=== PATIENT | female | born 1995 | race American Indian/Alaskan Native ===

== ENCOUNTER 2018-09-10 20:39 | Emergency (ER) | payer MEDICAID, OTHER ==
[2018-09-10 20:47] VITALS: BP 154/89
--- NOTE | 2018-09-10 21:13 | Emergency Department Report ---
Blank Doc - Documentation Documentation: 23 y/o female with mid chest pain that started this morning. Non productive c ough.
--- NOTE | 2018-09-11 01:53 | Emergency Department Report ---
ED General Adult HPI - General Chief complaint: Chest Pain Stated complaint: CHEST PAIN, SOB Time Seen by Provider: 09/10/18 23:23 Source: patient Mode of arrival: Ambulatory Limitations: No Limitations - History of Present Illness Initial comments: 23-year-old female who is 20 weeks 5 days emergency department complaining of a one day history of non-productive cough and atypical chest discomfort associated with some occasional lightheadedness. States that she is been having symptoms having some issues with feeling lightheaded and coughing spells lasting for one hour. No fever associated no nausea or vomiting. She reports no pelvic pain or vaginal discharge. No abdominal pain, no flank pain. No no neck pain. She has not tried any [id number] medications due to her seeks further evaluation and treatment of her condition. Radiation: non-radiation Severity scale (0 -10): 9 Consistency: constant Improves with: none Worsens with: none - Related Data Previous Rx's Medication Instructions Recorded Last Taken Type HYDROcodone/APAP 5-325 [[place] 1 each PO Q6HR PRN #20 tablet 01/15/14 Unknown Rx 5/325] Acetaminophen/Codeine 1 tab PO Q6H PRN #15 tab 04/12/14 Unknown Rx [Acetaminophen-Codeine #3 TAB] Allergies Allergy/AdvReac Type Severity Reaction Status Date / Time No Known Allergies Allergy Verified 09/10/18 20:41 ED Review of Systems ROS: Stated complaint: CHEST PAIN, SOB Other details as noted in HPI Constitutional: denies: chills, fever Eyes: denies: eye pain, eye discharge, vision change ENT: denies: ear pain, throat pain Respiratory: denies: cough, shortness of breath, wheezing Cardiovascular: chest pain. denies: palpitations Endocrine: no symptoms reported Gastrointestinal: denies: abdominal pain, nausea, diarrhea Genitourinary: denies: urgency, dysuria, discharge Musculoskeletal: denies: back pain, joint swelling, arthralgia Skin: denies: rash, lesions Neurological: denies: headache, weakness, paresthesias Psychiatric: denies: anxiety, depression Hematological/Lymphatic: denies: easy bleeding, easy bruising ED Past Medical Hx - Past Medical History Previous Medical History?: Yes Additional medical history: costrocondritis - Surgical History Past Surgical History?: Yes Additional Surgical History: - Social History Smoking Status: Never Smoker Substance Use Type: None - Medications Home Medications: Home Medications Medication Instructions Recorded Confirmed Last Taken Type HYDROcodone/APAP 5-325 [[place] 1 each PO Q6HR PRN #20 tablet 01/15/14 Unknown Rx 5/325] Acetaminophen/Codeine 1 tab PO Q6H PRN #15 tab 04/12/14 Unknown Rx [Acetaminophen-Codeine #3 TAB] ED Physical Exam - General Limitations: No Limitations General appearance: alert, in no apparent distress - Head Head exam: Present: atraumatic, normocephalic - Eye Eye exam: Present: normal appearance, PERRL, EOMI Pupils: Present: normal accommodation - ENT ENT exam: Present: normal exam, mucous membranes moist - Neck Neck exam: Present: normal inspection, full ROM - Respiratory Respiratory exam: Present: normal lung sounds bilaterally. Absent: respiratory distress, wheezes, rales, rhonchi, chest wall tenderness, accessory muscle use, decreased breath sounds - Cardiovascular Cardiovascular Exam: Present: regular rate, normal rhythm. Absent: systolic murmur, diastolic murmur, rubs, gallop - GI/Abdominal GI/Abdominal exam: Present: soft, normal bowel sounds - Extremities Exam Extremities exam: Present: normal inspection - Back Exam Back exam: Present: normal inspection - Neurological Exam Neurological exam: Present: alert, oriented X3 - Psychiatric Psychiatric exam: Present: normal affect, normal mood - Skin Skin exam: Present: warm, dry, intact, normal color. Absent: rash ED Course Vital Signs 09/10/18 09/10/18 20:46 20:50 Temperature 97.7 F 97.7 F Pulse Rate 116 H 116 H Respiratory 16 16 Rate Blood Pressure 154/89 Blood Pressure 154/89 [Right] O2 Sat by Pulse 100 100 Oximetry Critical care attestation.: If time is entered above; I have spent that time in minutes in the direct care of this critically ill patient, excluding procedure time. ED Disposition Clinical Impression: Chest pain, Cough Disposition: - TO HOME OR SELFCARE Is pt being admited?: No Does the pt Need Aspirin: No Condition: Stable Instructions: Chest Pain (ED) Referrals: BETHANY CERVANTES MD [Primary Care Provider] - 3-5 Days
[2018-09-11 02:15] LABS: Hematocrit 36.6 % (30.3-42.9); Hemoglobin 12.4 gm/dl (10.1-14.3); Mean Corpuscular HGB Conc 34 % (30-34); Mean Corpuscular Volume 96 fl (79-97); Red Blood Count 3.81 M/mm3 (3.65-5.03)
[2018-09-11 02:16] LABS: Basophils % (Auto) 0.5 % (0.0-1.8); Eosinophils % (Auto) 2.4 % (0.0-4.3); Lymphocytes % (Auto) 18.6 % (13.4-35.0); Monocytes % (Auto) 7.5 % (0.0-7.3); Platelet Count 198 K/mm3 (140-440); Red Cell Distribution Width 13.3 % (13.2-15.2)
[2018-09-11 02:17] LABS: Eosinophils # (Auto) 0.2 K/mm3 (0.0-0.4); Lymphocytes # (Auto) 1.7 K/mm3 (1.2-5.4); Monocytes # (Auto) 0.7 K/mm3 (0.0-0.8)
[2018-09-11 02:28] LABS: BUN/Creatinine Ratio 15; Blood Urea Nitrogen 6 mg/dL (7-17); Calcium 8.7 mg/dL (8.4-10.2); Hemolysis Index 10
== END 2018-09-11 03:40 | disposition home or self-care (01) ==
LOC: ED 20:39
DX: O26.892 Other specified pregnancy related conditions, second trimester (principal); R05 Cough; R07.9 Chest pain, unspecified; R42 Dizziness and giddiness; Z3A.20 20 weeks gestation of pregnancy
CPT/HCPCS: 36415; 80048; 85025; 93005; 93010; 99283

== ENCOUNTER 2018-11-01 09:34 | Outpatient (CLI) | payer MEDICAID ==
[~2018-11-01 09:34] MED LIST: LACTATED RINGERS 1,000 ML IV ONE
[2018-11-01 10:34] LABS: Bilirubin,Urine NEG (Negative); Blood,Urine NEG (Negative); Color,Urine Yellow (Yellow); Mucus,Urine 2+ /HPF; Urobilinogen,Urine < 2.0 mg/dL (<2.0)
[2018-11-01] MEDS ORDERED: LACTATED RINGERS 1,000 ML ONE (10:45)
[2018-11-01 12:33] VITALS: BP 127/70
--- NOTE | 2018-11-02 07:09 | Ultrasound Report ---
PROCEDURE: US OB LIMITED TECHNIQUE: Limited transabdominal imaging was obtained the pelvis for evaluation of the EVIE and plac enta. HISTORY: ABDOMINAL PAIN, EVIE, LOOK AT PLACENTA COMPARISONS: None FINDINGS: The placenta is posterior in position and is grade 2. There is no evidence of previa or abruption. Th e EVIE is 11.9 cm which is normal. There is a single fetus in breech presentation. The heart rat e is 141 BPM. IMPRESSION: Grade 2 posterior placenta. No evidence of previa or abruption. Normal EVIE of 11.9 cm. Breech presentation. The heart rate is 141 BPM.. This document is electronically signed by Micah Dunn MD., November 02 2018 07:07:30 AM ET
== END 2018-11-01 16:29 | disposition home or self-care (01) ==
LOC: TRG 09:34
PROVIDERS: ATTEND Obstetrics & Gynecology
DX: O26.893 Other specified pregnancy related conditions, third trimester (principal); R10.9 Unspecified abdominal pain; O32.1XX0 Maternal care for breech presentation, not applicable or unspecified; O47.03 False labor before 37 completed weeks of gestation, third trimester; Z3A.28 28 weeks gestation of pregnancy
CPT/HCPCS: 59025; 76815; 81001; J7120

== ENCOUNTER 2020-02-28 16:50 | Emergency (ER) | payer OTHER ==
[2020-02-28] MEDS ORDERED: METOCLOPRAMIDE 10 MG TAB PO ONE (21:14)
[2020-02-28] MEDS ORDERED: diphenhydrAMINE 25 MG CAP PO ONE (21:14)
[2020-02-28] MEDS ORDERED: predniSONE 20 MG TAB PO ONE (21:14)
--- NOTE | 2020-02-28 21:42 | Emergency Department Report ---
- General Chief complaint: Skin Rash Stated complaint: BITES ON BOTH ARMS Time Seen by Provider: 02/28/20 20:58 Source: patient Mode of arrival: Ambulatory Limitations: No Limitations - History of Present Illness Initial comments: Patient is a 24-year-old female who presents status post insect bite to right forearm 2 days ago. No erythema itching to bilateral forearms and upper arms. Patient was seen by PCP today and advised that she had an allergic reaction. Patient has not taken po antihistamine prior to arrival. There is no fever or chills no n/v no sob, no wheezing or stridor. symptoms started 2 days ago. MD complaint: insect bite/sting - Related Data Previous Rx's Medication Instructions Recorded Last Taken Type Ibuprofen [Motrin 800 MG tab] 800 mg PO Q8HR PRN #30 tablet 01/01/20 Unknown Rx oxyCODONE /ACETAMINOPHEN [Percocet 1 tab PO Q4HR PRN #30 tab 01/01/20 Unknown Rx 5/325] Famotidine [Pepcid] 20 mg PO BID PRN #14 tablet 02/28/20 Unknown Rx diphenhydrAMINE [Benadryl CAP] 25 mg PO Q8HR PRN #21 capsule 02/28/20 Unknown Rx predniSONE [Deltasone] 20 mg PO QDAY 5 Days #5 tab 02/28/20 Unknown Rx Allergies Allergy/AdvReac Type Severity Reaction Status Date / Time No Known Allergies Allergy Verified 09/10/18 20:41 Abscess Boil HPI - HPI Chief Complaint: Skin Rash Stated Complaint: BITES ON BOTH ARMS Time Seen by Provider: 02/28/20 20:58 Home Medications: Previous Rx's Medication Instructions Recorded Last Taken Type Ibuprofen [Motrin 800 MG tab] 800 mg PO Q8HR PRN #30 tablet 01/01/20 Unknown Rx oxyCODONE /ACETAMINOPHEN [Percocet 1 tab PO Q4HR PRN #30 tab 01/01/20 Unknown Rx 5/325] Famotidine [Pepcid] 20 mg PO BID PRN #14 tablet 02/28/20 Unknown Rx diphenhydrAMINE [Benadryl CAP] 25 mg PO Q8HR PRN #21 capsule 02/28/20 Unknown Rx predniSONE [Deltasone] 20 mg PO QDAY 5 Days #5 tab 02/28/20 Unknown Rx Allergies/Adverse Reactions: Allergies Allergy/AdvReac Type Severity Reaction Status Date / Time No Known Allergies Allergy Verified 09/10/18 20:41 ED Review of Systems ROS: Stated complaint: BITES ON BOTH ARMS Other details as noted in HPI Constitutional: denies: chills, fever Eyes: denies: eye pain, eye discharge, vision change ENT: denies: ear pain, throat pain Respiratory: denies: cough, shortness of breath, wheezing Cardiovascular: denies: chest pain, palpitations Endocrine: no symptoms reported Gastrointestinal: denies: abdominal pain, nausea, diarrhea Genitourinary: denies: urgency, dysuria, discharge Musculoskeletal: denies: back pain, joint swelling, arthralgia Skin: pruritus (bilat upper extrem) Neurological: denies: headache, weakness, paresthesias Psychiatric: denies: anxiety, depression Hematological/Lymphatic: denies: easy bleeding, easy bruising ED Past Medical Hx - Past Medical History Hx Hypertension: No Hx Diabetes: No Hx Deep Vein Thrombosis: No Hx Renal Disease: No Hx Sickle Cell Disease: No Hx Seizures: No Hx Asthma: No Hx HIV: No Additional medical history: costrocondritis - Surgical History Additional Surgical History: - Social History Smoking Status: Never Smoker - Medications Home Medications: Home Medications Medication Instructions Recorded Confirmed Last Taken Type Ibuprofen [Motrin 800 MG tab] 800 mg PO Q8HR PRN #30 tablet 01/01/20 Unknown Rx oxyCODONE /ACETAMINOPHEN [Percocet 1 tab PO Q4HR PRN #30 tab 01/01/20 Unknown Rx 5/325] Famotidine [Pepcid] 20 mg PO BID PRN #14 tablet 02/28/20 Unknown Rx diphenhydrAMINE [Benadryl CAP] 25 mg PO Q8HR PRN #21 capsule 02/28/20 Unknown Rx predniSONE [Deltasone] 20 mg PO QDAY 5 Days #5 tab 02/28/20 Unknown Rx ED Physical Exam - General Limitations: No Limitations General appearance: alert, in no apparent distress - Head Head exam: Present: atraumatic - Eye Eye exam: Present: normal appearance - ENT ENT exam: Present: mucous membranes moist - Neck Neck exam: Present: normal inspection - Respiratory Respiratory exam: Present: normal lung sounds bilaterally. Absent: respiratory distress, wheezes, stridor, chest wall tenderness - Cardiovascular Cardiovascular Exam: Present: regular rate, normal rhythm, normal heart sounds. Absent: systolic murmur, diastolic murmur, rubs, gallop - GI/Abdominal GI/Abdominal exam: Present: soft, normal bowel sounds - Rectal Rectal exam: Present: deferred - Extremities Exam Extremities exam: Present: full ROM, normal capillary refill. Absent: tenderness - Back Exam Back exam: Present: normal inspection, full ROM. Absent: tenderness - Neurological Exam Neurological exam: Present: alert, oriented X3, normal gait - Psychiatric Psychiatric exam: Present: normal affect, normal mood - Skin Skin exam: Present: warm, dry, intact, erythema (bialt forearm erythema rash raised smooth no drainage no fever ), urticaria. Absent: rash ED Course Vital Signs 02/28/20 17:32 Temperature 98.2 F Pulse Rate 81 Respiratory 18 Rate Blood Pressure 121/87 O2 Sat by Pulse 99 Oximetry ED Medical Decision Making - Medical Decision Making This is and allergic reaction to insect bite/sting, symptoms are improved with medications given in ed, vital signs are normal , resp even nonlabored no wheezing no stridor, no sob, no cp. plan dc to home with rx , prednisone, benadr yl, pepcid pt will follow up with pcp in 2-3 days. pt dc'd to home in stable condition at this time. Critical care attestation.: If time is entered above; I have spent that time in minutes in the direct care of this critically ill patient, excluding procedure time. ED Disposition Clinical Impression: Insect sting allergy, current reaction Qualifiers: Encounter type: initial encounter Injury intent: accidental or unintentional Qualified Code(s): T63.481A - Toxic effect of venom of other arthropod, accidental (unintentional), initial encounter Disposition: DC-01 TO HOME OR SELFCARE Is pt being admited?: No Does the pt Need Aspirin: No Condition: Stable Instructions: Allergies (ED), Insect Bite or Sting (ED) Prescriptions: diphenhydrAMINE [Benadryl CAP] 25 mg PO Q8HR PRN #21 capsule PRN Reason: itching allergies predniSONE [Deltasone] 20 mg PO QDAY 5 Days #5 tab Famotidine [Pepcid] 20 mg PO BID PRN #14 tablet PRN Reason: allergies Referrals: LUIS ALBERTO REEVES MD [Primary Care Provider] - 3-5 Days Forms: Work/School Release Form(ED) Time of Disposition: 21:49
[2020-02-28 22:23] VITALS: BP 123/71
== END 2020-02-28 21:55 | disposition home or self-care (01) ==
LOC: ED 16:50
DX: T63.481A Toxic effect of venom of other arthropod, accidental (unintentional), initial encounter (principal); Z98.890 Other specified postprocedural states; Z79.1 Long term (current) use of non-steroidal anti-inflammatories (NSAID); Z79.899 Other long term (current) drug therapy; Y92.89 Other specified places as the place of occurrence of the external cause
CPT/HCPCS: 99282; J7512

== ENCOUNTER 2020-03-23 05:56 | Emergency (ER) | payer OTHER ==
[2020-03-23] MEDS ORDERED: dexAMETHasone 4 MG/ML VIAL IM ONE (06:33)
[2020-03-23] MEDS ORDERED: diphenhydrAMINE 50 MG/ML VIAL IM ONE (06:33)
[2020-03-23] MEDS ORDERED: FAMOTIDINE 20 MG TAB PO ONE (06:34)
--- NOTE | 2020-03-23 06:38 | Emergency Department Report ---
ED General Adult HPI - General Chief complaint: Allergic Reaction Stated complaint: SWOLLEN LIP Time Seen by Provider: 03/23/20 06:21 Source: patient Mode of arrival: Ambulatory Limitations: No Limitations - History of Present Illness Initial comments: 24-year-old female with essentially idiopathic swelling of the lower lip overnight. She reports no precipitant. She has had no difficulty in breathing or swallowing. She has not had a reaction like this before. She has not been on any blood pressure medicine. She denies any apparent exposure to chemical or insects. She does not report a prior personal history nor familial. -: Gradual, hour(s) Location: mouth (Lower lip only) Quality: other (Uncomfortable) Consistency: constant Improves with: none Worsens with: none Associated Symptoms: denies other symptoms Treatments Prior to Arrival: none - Related Data Previous Rx's Medication Instructions Recorded Last Taken Type Ibuprofen [Motrin 800 MG tab] 800 mg PO Q8HR PRN #30 tablet 01/01/20 Unknown Rx oxyCODONE /ACETAMINOPHEN [Percocet 1 tab PO Q4HR PRN #30 tab 01/01/20 Unknown Rx 5/325] Famotidine [Pepcid] 20 mg PO BID PRN #14 tablet 02/28/20 Unknown Rx diphenhydrAMINE [Benadryl CAP] 25 mg PO Q8HR PRN #21 capsule 02/28/20 Unknown Rx predniSONE [Deltasone] 20 mg PO QDAY 5 Days #5 tab 02/28/20 Unknown Rx Famotidine [Pepcid] 20 mg PO BID #20 tablet 03/23/20 Unknown Rx hydrOXYzine HCL [Atarax] 25 mg PO Q6HR PRN #30 tablet 03/23/20 Unknown Rx predniSONE [Deltasone] 40 mg PO QDAY #10 tab 03/23/20 Unknown Rx Allergies Allergy/AdvReac Type Severity Reaction Status Date / Time No Known Allergies Allergy Verified 09/10/18 20:41 ED Review of Systems ROS: Stated complaint: SWOLLEN LIP Other details as noted in HPI Constitutional: denies: chills, fever Eyes: denies: eye pain, vision change ENT: denies: ear pain, throat pain Respiratory: denies: cough, shortness of breath Cardiovascular: denies: chest pain, palpitations Endocrine: no symptoms reported Gastrointestinal: denies: abdominal pain, nausea, vomiting Genitourinary: denies: urgency, dysuria Musculoskeletal: denies: joint swelling, arthralgia Skin: as per HPI. denies: rash, lesions Neurological: denies: headache, weakness, numbness Psychiatric: denies: anxiety, depression Hematological/Lymphatic: denies: easy bleeding, easy bruising ED Past Medical Hx - Past Medical History Previous Medical History?: Yes Hx Hypertension: No Hx Diabetes: No Hx Deep Vein Thrombosis: No Hx Renal Disease: No Hx Sickle Cell Disease: No Hx Seizures: No Hx Asthma: No Hx HIV: No Additional medical history: costrocondritis - Surgical History Past Surgical History?: Yes Additional Surgical History: - Social History Smoking Status: Never Smoker Substance Use Type: None - Medications Home Medications: Home Medications Medication Instructions Recorded Confirmed Last Taken Type Ibuprofen [Motrin 800 MG tab] 800 mg PO Q8HR PRN #30 tablet 01/01/20 Unknown Rx oxyCODONE /ACETAMINOPHEN [Percocet 1 tab PO Q4HR PRN #30 tab 01/01/20 Unknown Rx 5/325] Famotidine [Pepcid] 20 mg PO BID PRN #14 tablet 02/28/20 Unknown Rx diphenhydrAMINE [Benadryl CAP] 25 mg PO Q8HR PRN #21 capsule 02/28/20 Unknown Rx predniSONE [Deltasone] 20 mg PO QDAY 5 Days #5 tab 02/28/20 Unknown Rx Famotidine [Pepcid] 20 mg PO BID #20 tablet 03/23/20 Unknown Rx hydrOXYzine HCL [Atarax] 25 mg PO Q6HR PRN #30 tablet 03/23/20 Unknown Rx predniSONE [Deltasone] 40 mg PO QDAY #10 tab 03/23/20 Unknown Rx ED Physical Exam - General Limitations: No Limitations General appearance: alert, in no apparent distress - Head Head exam: Present: atraumatic, normocephalic - Eye Eye exam: Present: normal appearance. Absent: scleral icterus - ENT ENT exam: Present: mucous membranes moist, other (2+ angioedema of the lower lip. Upper lip is not involved. Throat is not involved. Airway is patent.) - Neck Neck exam: Present: normal inspection, other (No submandibular angioedema/swelling. No neck swelling.) - Respiratory Respiratory exam: Present: normal lung sounds bilaterally. Absent: respiratory distress - Cardiovascular Cardiovascular Exam: Present: regular rate, normal rhythm. Absent: systolic murmur, diastolic murmur, rubs, gallop - GI/Abdominal GI/Abdominal exam: Present: soft, normal bowel sounds. Absent: distended, tenderness - Extremities Exam Extremities exam: Present: normal inspection. Absent: pedal edema - Back Exam Back exam: Present: normal inspection - Neurological Exam Neurological exam: Present: alert, oriented X3, CN II-XII intact. Absent: motor sensory deficit - Psychiatric Psychiatric exam: Present: normal affect, normal mood - Skin Skin exam: Present: warm, dry, intact, normal color. Absent: rash ED Course Vital Signs 03/23/20 03/23/20 03/23/20 06:00 06:44 07:26 Temperature 98.1 F 98.0 F Pulse Rate 91 H 80 Respiratory 16 18 Rate Blood Pressure 126/81 Blood Pressure 119/78 [Left] O2 Sat by Pulse 99 100 100 Oximetry 03/23/20 07:29 Temperature Pulse Rate 86 Respiratory 16 Rate Blood Pressure Blood Pressure 118/79 [Left] O2 Sat by Pulse 100 Oximetry - Reevaluation(s) Reevaluation #1: Apparently the patient has been here in February for some sort of allergic reaction as well. She is encouraged to follow-up with an etl informatica architect. She was observed. She developed no neck or airway edema. Lip edema is perhaps slightly improved. She is resting comfortably in no distress. She is appropriate for outpatient disposition and agreeable. 03/23/20 07:49 Critical care attestation.: If time is entered above; I have spent that time in minutes in the direct care of this critically ill patient, excluding procedure time. ED Disposition Clinical Impression: Angioedema of lips Qualifiers: Encounter type: initial encounter Qualified Code(s): T78.3XXA - Angioneurotic edema, initial encounter Disposition: - TO HOME OR SELFCARE Is pt being admited?: No Does the pt Need Aspirin: No Condition: Stable Instructions: Angioedema, [id number], Angioedema Additional Instructions: I would recommend evaluation by an etl informatica architect. Follow-up with family physician for specific referral. Options for primary care are listed. Return to the emergency department any increased swelling difficulty swallowing or breathing problem. Prescriptions: hydrOXYzine HCL [Atarax] 25 mg PO Q6HR PRN #30 tablet PRN Reason: Itching predniSONE [Deltasone] 40 mg PO QDAY #10 tab Famotidine [Pepcid] 20 mg PO BID #20 tablet Referrals: PRASAD BARRETO MD [Staff Physician] - 3-5 Days [facility] [Provider Group] - 3-5 Days Time of Disposition: 07:51
[2020-03-23 07:29] VITALS: BP 118/79
== END 2020-03-23 08:30 | disposition home or self-care (01) ==
LOC: ED 05:56
DX: T78.3XXA Angioneurotic edema, initial encounter (principal); Z98.890 Other specified postprocedural states; Z79.899 Other long term (current) drug therapy; X58.XXXA Exposure to other specified factors, initial encounter
CPT/HCPCS: 96372; 99282; J1100; J1200

== ENCOUNTER 2021-07-05 18:51 | Emergency (ER) | payer OTHER ==
[2021-07-05 19:27] VITALS: BP 124/80
--- NOTE | 2021-07-06 01:36 | XRay Report ---
XR chest routine 2V INDICATION / CLINICAL INFORMATION: chest pain. COMPARISON: None available. FINDINGS: SUPPORT DEVICES: None. HEART /PULMONARY VASCULATURE: No significant abnormality. LUNGS / PLEURA: No significant pulmonary or pleural abnormality. No pneumothorax. ADDITIONAL FINDINGS: No significant additional findings. IMPRESSION: 1. No acute findings. Signer Name: Jovanny Armas MD Signed: 07/06/2021 1:31 AM Workstation Name: [id number]
--- NOTE | 2021-07-06 02:17 | Emergency Department Report ---
ED General Adult HPI - General Chief complaint: Chest Pain Stated complaint: HEADACHE/CHEST TIGHTNESS Time Seen by Provider: 07/06/21 00:16 Source: patient Mode of arrival: Ambulatory Limitations: No Limitations - History of Present Illness Initial comments: 26-year-old male female with medical complaining of pain to the right chest that started around 4:00 today of an unknown etiology pain is worse with palpation and deep breaths she reports no hemoptysis no hematemesis hematochezia, no fever, chills, sweats. No nausea, no vomiting. She reports no diarrhea or constipation. Radiation: non-radiation Consistency: constant Improves with: none Worsens with: none Associated Symptoms: chest pain. denies: headaches, loss of appetite, malaise, nausea/vomiting, shortness of breath, syncope, weakness - Related Data Previous Rx's Medication Instructions Recorded Last Taken Type Ibuprofen [Motrin 800 MG tab] 800 mg PO Q8HR PRN #30 tablet 01/01/20 Unknown Rx oxyCODONE /ACETAMINOPHEN [Percocet 1 tab PO Q4HR PRN #30 tab 01/01/20 Unknown Rx 5/325] Famotidine [Pepcid] 20 mg PO BID PRN #14 tablet 02/28/20 Unknown Rx diphenhydrAMINE [Benadryl CAP] 25 mg PO Q8HR PRN #21 capsule 02/28/20 Unknown Rx predniSONE [Deltasone] 20 mg PO QDAY 5 Days #5 tab 02/28/20 Unknown Rx Famotidine [Pepcid] 20 mg PO BID #20 tablet 03/23/20 Unknown Rx hydrOXYzine HCL [Atarax] 25 mg PO Q6HR PRN #30 tablet 03/23/20 Unknown Rx predniSONE [Deltasone] 40 mg PO QDAY #10 tab 03/23/20 Unknown Rx Ketorolac [Toradol] 10 mg PO Q6H PRN #20 07/06/21 Unknown Rx Allergies Allergy/AdvReac Type Severity Reaction Status Date / Time No Known Allergies Allergy Verified 09/10/18 20:41 ED Review of Systems ROS: Stated complaint: HEADACHE/CHEST TIGHTNESS Other details as noted in HPI Comment: All other systems reviewed and negative ED Past Medical Hx - Past Medical History Previous Medical History?: Yes Hx Hypertension: No Hx Diabetes: No Hx Deep Vein Thrombosis: No Hx Renal Disease: No Hx Sickle Cell Disease: No Hx Seizures: No Hx Asthma: No Hx HIV: No Additional medical history: costrocondritis - Surgical History Past Surgical History?: Yes Additional Surgical History: X 4 - Social History Smoking Status: Never Smoker Substance Use Type: None - Medications Home Medications: Home Medications Medication Instructions Recorded Confirmed Last Taken Type Ibuprofen [Motrin 800 MG tab] 800 mg PO Q8HR PRN #30 tablet 01/01/20 Unknown Rx oxyCODONE /ACETAMINOPHEN [Percocet 1 tab PO Q4HR PRN #30 tab 01/01/20 Unknown Rx 5/325] Famotidine [Pepcid] 20 mg PO BID PRN #14 tablet 02/28/20 Unknown Rx diphenhydrAMINE [Benadryl CAP] 25 mg PO Q8HR PRN #21 capsule 02/28/20 Unknown Rx predniSONE [Deltasone] 20 mg PO QDAY 5 Days #5 tab 02/28/20 Unknown Rx Famotidine [Pepcid] 20 mg PO BID #20 tablet 03/23/20 Unknown Rx hydrOXYzine HCL [Atarax] 25 mg PO Q6HR PRN #30 tablet 03/23/20 Unknown Rx predniSONE [Deltasone] 40 mg PO QDAY #10 tab 03/23/20 Unknown Rx Ketorolac [Toradol] 10 mg PO Q6H PRN #20 07/06/21 Unknown Rx ED Physical Exam - General Limitations: No Limitations General appearance: alert, in no apparent distress - Head Head exam: Present: atraumatic, normocephalic - Eye Eye exam: Present: normal appearance, PERRL, EOMI Pupils: Present: normal accommodation - ENT ENT exam: Present: normal exam, mucous membranes moist, TM's normal bilaterally - Neck Neck exam: Present: normal inspection - Respiratory Respiratory exam: Present: normal lung sounds bilaterally, chest wall tenderness (Tenderness along the right sternal border with palpation. Pain with opposed adduction as well.). Absent: respiratory distress - Cardiovascular Cardiovascular Exam: Present: regular rate, normal rhythm. Absent: systolic murmur, diastolic murmur, rubs, gallop - GI/Abdominal GI/Abdominal exam: Present: soft, normal bowel sounds - Extremities Exam Extremities exam: Present: normal inspection - Back Exam Back exam: Present: normal inspection - Neurological Exam Neurological exam: Present: alert, oriented X3, CN II-XII intact - Psychiatric Psychiatric exam: Present: normal affect, normal mood - Skin Skin exam: Present: warm, dry, intact, normal color. Absent: rash ED Course Vital Signs 07/05/21 19:24 Temperature 99.1 F Pulse Rate 102 H Respiratory 16 Rate Blood Pressure 124/80 O2 Sat by Pulse 100 Oximetry ED Medical Decision Making - Radiology Data Radiology results: report reviewed [facility] [address] [place] [address] XRay Report Signed Patient: JACQUELYN RANDLE MR#: [id number] : 1995 Acct:[id number] Age/Sex: 26 / F ADM Date: 07/05/21 Loc: ED Attending Dr: Ordering Physician: GENNY SHAVER Date of Service: 07/06/21 Procedure(s): XR chest routine 2V Accession Number(s): [id number] cc: GENNY SHAVER Fluoro Time In Minutes: XR chest routine 2V INDICATION / CLINICAL INFORMATION: chest pain. COMPARISON: None available. FINDINGS: SUPPORT DEVICES: None. HEART /PULMONARY VASCULATURE: No significant abnormality. LUNGS / PLEURA: No significant pulmonary or pleural abnormality. No pneumothorax. ADDITIONAL FINDINGS: No significant additional findings. IMPRESSION: 1. No acute findings. Signer Name: Janelle Armas MD Signed: 07/06/2021 1:31 AM Workstation Name: [id number] Transcribed By: JS Dictated By: JANELLE ARMAS MD Electronically Authenticated By: JANELLE ARMAS MD Signed Date/Time: 07/06/21130 DD/ 0 TD/TT: Print Cancel - Medical Decision Making This patient presents with chest pain that is very unlikely angina or acute coronary syndrome. The emergency department evaluation has not identified any cause for suspicion that this chest pain has a cardiac etiology. Based on their history, EKG (which showed no evidence of ischemia or infarction) and imaging, in addition to the patient's physical exam, I see no evidence at this time for a malignant etiology for the patient's chest pain. There is no acute evidence for pulmonary embolus, acute myocardial infarction, pneumothorax, Boerhaeve syndrome, cardiac tamponade, thoracic artery dissection, or any other emergent cardiac, pulmonary or aortic pathology. Given the low pre-test probability for cardiac etiology of chest pain and the absence of any sign of ischemia or infarction, discharge for outpatient follow-up and further evaluation is reasonable. I have explained to the patient that even though a cardiac problem is very unlikely, follow-up and further testing is required to reduce further the already small uncertainty that exists. Other life-threatening diagnoses have been considered. The patient understands the need to return immediately if their symptoms worsen or they develop any new symptoms, and not to engage in any significant exertional activity until follow-up is obtained. Critical care attestation.: If time is entered above; I have spent that time in minutes in the direct care of this critically ill patient, excluding procedure time. ED Disposition Clinical Impression: Costochondritis, acute, Chest pain Disposition: 01 HOME / SELF CARE / HOMELESS Is pt being admited?: No Does the pt Need Aspirin: No Condition: Stable Instructions: Nonspecific Chest Pain, Adult, Costochondritis Prescriptions: Ketorolac [Toradol] 10 mg PO Q6H PRN #20 PRN Reason: Pain Referrals: SAMUEL GALVEZ MD [Staff Physician] - 3-5 Days
--- NOTE | 2021-07-08 17:24 | Electrocardiograph Report ---
[facility] Test Date: 2021-07-05 Test Time: 19:48:49 Pat Name: JACQUELYN RANDLE Department: Room: Gender: F Administrative Representative: SHALA : 1995 Requested By: ROSSY MORALES Order Number: [id number] Reading MD: Mike Chirinos Measurements Intervals [place] Rate: 95 P: 68 MO: 149 QRS: -10 QRSD: 85 T: 55 QT: 379 QTc: 475 Interpretive Statements Sinus rhythm Probable left atrial enlargement No previous ECG available for comparison Electronically Signed On 07-08-2021 17:23:52 EST by Mike Chirinos
== END 2021-07-06 02:57 | disposition home or self-care (01) ==
LOC: ED 18:51
DX: M94.0 Chondrocostal junction syndrome [Tietze] (principal); R07.9 Chest pain, unspecified
CPT/HCPCS: 71046; 93005; 93010; 99283